=== PATIENT | female | born 2000 | race Caucasian/White ===

== ENCOUNTER 2018-02-19 21:37 | Emergency (ER) | payer OTHER ==
[~2018-02-19] VITALS: Ht 177.8 cm; Wt 102.3 kg
[2018-02-19 21:40] VITALS: BP 195/105; TEMP 98.3
[2018-02-19] MEDS ORDERED: PRECOSE50 MG (22:11)
[2018-02-19] MEDS ORDERED: LEVOXYL0.025 MG PO (22:11)
[2018-02-19 22:24] VITALS: PULSE 118
== END 2018-02-19 22:25 | disposition home or self-care (01) ==
LOC: COL.ER 21:37
DX: L55.0 Sunburn of first degree (principal)